=== PATIENT | female | born 1980 | race African-American/Black ===

== ENCOUNTER 2017-02-17 19:49 | Emergency (ER) | payer MEDICARE ==
[2017-02-17] MEDS ORDERED: HYDROcodone/Acetaminophen 10/325 mg Tablet ONE (21:31)
== END 2017-02-17 21:35 | disposition home or self-care (01) ==
LOC: ERS 19:49
DX: M77.12 Lateral epicondylitis, left elbow (principal); F32.9 Major depressive disorder, single episode, unspecified
CPT/HCPCS: 99406

== ENCOUNTER 2018-11-30 10:52 | Outpatient (CLI) | payer MEDICARE ==
--- NOTE | 2018-11-30 12:07 | RAD ---
LUMBAR SPINE SERIES 3 VIEWS: Date: 11/30/18 HISTORY: Back pain. COMPARISON: 07/24/13 study. FINDINGS: The vertebral bodies are normal in height. Disc spaces are well preserved. Pedicles are intact. No sp ondylolysis or spondylolisthesis. IMPRESSION: Unremarkable lumbar spine series. POS: [facility]
--- NOTE | 2018-11-30 12:10 | RAD ---
HISTORY: Knee pain. FINDINGS: Postoperative changes of the knee related to an ACL repair are noted. No significant arthritic change . No joint effusion. IMPRESSION: Postoperative changes of the knee. POS: [facility]
== END 2018-11-30 10:53 | disposition home or self-care (01) ==
LOC: RAD-FRANK 10:52
PROVIDERS: ATTEND Internal Medicine
DX: M25.562 Pain in left knee (principal); M54.5 Low back pain; Z98.890 Other specified postprocedural states
CPT/HCPCS: 72100

== ENCOUNTER 2018-12-13 15:05 | Emergency (ER) | payer MEDICARE, MEDICAID | END 2018-12-13 15:40 | disposition home or self-care (01) | LOC: ERS 15:05 | DX: N61.0 Mastitis without abscess (principal); N63.20 Unspecified lump in the left breast, unspecified quadrant; F32.9 Major depressive disorder, single episode, unspecified | CPT/HCPCS: 99283 ==